=== PATIENT | female | born 1940 | race Caucasian/White ===

== ENCOUNTER 2017-04-10 07:36 | Day surgery (SDC) | payer OTHER, BC ==
[2017-04-04 12:49] VITALS: BMI 23.4
[2017-04-10] MEDS ORDERED: LIDOCAINE HCL/PF 2% SDV 5ML VIAL ONE (07:42)
[2017-04-10] MEDS ORDERED: PROPOFOL 20 ML ONE ×2 (07:42)
[2017-04-10 08:57] VITALS: TEMP 97.8
[2017-04-10 09:21] VITALS: BP 113/63; PULSE 78
== END 2017-04-10 09:35 | disposition home or self-care (01) ==
LOC: FASU-ENDO 07:36
PROVIDERS: ATTEND Internal Medicine Gastroenterology
PROC: 0DJD8ZZ Inspection of Lower Intestinal Tract, Via Natural or Artificial Opening Endoscopic (ICD-10-PCS; principal; 2017-04-10 08:30)
DX: K62.5 Hemorrhage of anus and rectum (principal); K57.30 Diverticulosis of large intestine without perforation or abscess without bleeding; K64.8 Other hemorrhoids; Z98.0 Intestinal bypass and anastomosis status